=== PATIENT | male | born 1980 | race Two or more races ===

== ENCOUNTER 2025-01-16 18:42 | Emergency (ER) | payer OTHER ==
[~2025-01-16] VITALS: Ht 175.3 cm; Wt 127.0 kg
[2025-01-16 19:42] LABS: PLATELET COUNT (AUTO) 227 K/uL (150-450); RED BLOOD CELL COUNT(AUTO) 5.44 MIL/uL (4.5-6.0); RED CELL DISTRIBUTION WIDTH 14.2 % (11.5-15.0); WHITE BLOOD COUNT (AUTO) 9.4 K/uL (4.3-11.0)
[2025-01-16 19:53] LABS: SODIUM SERUM 136 mmol/L (136-145)
[2025-01-16 19:54] LABS: CALCIUM, SERUM 8.3 mg/dL (8.5-10.1); CREATININE 0.8 mg/dL (0.6-1.3); UREA NITROGEN, BLOOD 11 mg/dL (7-18)
[2025-01-16 19:55] LABS: ASPARTATE AMINOTRANSFERASE 16 U/L (15-37)
[2025-01-16 19:56] LABS: TOTAL PROTEIN, SERUM 6.3 g/dL (6.4-8.2)
[2025-01-16 20:21] LABS: APPEARANCE,URINE CLEAR (CLEAR); BLOOD, URINE Small Ery/uL (NEGATIVE); LEUKOCYTE ESTERASE ,URINE Negative (NEGATIVE); NITRITE, URINE NEGATIVE (NEGATIVE); UGLUCOSE >=1000 mg/dL (NEGATIVE)
[2025-01-16 20:24] LABS: ADD URINE CULTURE YES; SQUAMOUS EPITHELIAL CELL,UR Rare /HPF (None Seen)
[2025-01-16 20:25] LABS: URINE AMORPHOUS URATE Rare /HPF (None Seen)
[2025-01-16 20:28] LABS: AMPHETAMINE, URINE NEGATIVE (NEGATIVE); BARBITURATE, URINE NEGATIVE (NEGATIVE); BENZODIAZEPINE, URINE NEGATIVE (NEGATIVE); CANNABINOID, URINE NEGATIVE (NEGATIVE); COCCAINE, URINE NEGATIVE (NEGATIVE); OPIATE, URINE NEGATIVE (NEGATIVE)
[2025-01-16] MEDS ORDERED: INSULIN REGULAR, HUMAN 100 UNIT/ML 10 ML VIAL ONE (20:57)
[2025-01-16] MEDS: IV NS 0.9% 1,000 ML BAG IV ONE (21:03)
[2025-01-16] MEDS: INSULIN REGULAR, HUMAN 100 UNIT/ML 10 ML VIAL SQ ONE (21:04)
[2025-01-16] MEDS ORDERED: POTASSIUM CHLORIDE 20 MEQ TAB.PRT.SR PO ONE (22:33)
[2025-01-16] MEDS: POTASSIUM CHLORIDE 20 MEQ TAB.PRT.SR PO ONE (22:35)
[2025-01-17 00:56] LABS: CALCIUM, SERUM 8.2 mg/dL (8.5-10.1); CREATININE 0.7 mg/dL (0.6-1.3); SODIUM SERUM 143.0 mmol/L (136-145); UREA NITROGEN, BLOOD 8.0 mg/dL (7-18)
[2025-01-17 08:00] VITALS: TEMP 98.6
[2025-01-17] MEDS ORDERED: ACETAMINOPHEN ES 500 MG TABLET ONE (08:19)
[2025-01-17] MEDS: ACETAMINOPHEN ES 500 MG TABLET PO ONE (08:20)
[2025-01-17] MEDS ORDERED: AMLODIPINE BESYLATE 5 MG TABLET ONE (11:56)
[2025-01-17] MEDS ORDERED: LOSARTAN POTASSIUM 25 MG TABLET ONE (11:56)
[2025-01-17] MEDS: AMLODIPINE BESYLATE 5 MG TABLET PO ONE (11:58)
[2025-01-17] MEDS: LOSARTAN POTASSIUM 25 MG TABLET PO ONE (11:59)
[2025-01-17 12:57] VITALS: BP 182/85; O2SAT 99
== END 2025-01-17 13:55 ==
LOC: ER 18:51
DX: R45.851 Suicidal ideations (principal); E11.65 Type 2 diabetes mellitus with hyperglycemia; E78.00 Pure hypercholesterolemia, unspecified; E87.6 Hypokalemia; F10.20 Alcohol dependence, uncomplicated; I10 Essential (primary) hypertension; I25.2 Old myocardial infarction; K43.9 Ventral hernia without obstruction or gangrene; Z88.0 Allergy status to penicillin; Z20.822 Contact with and (suspected) exposure to COVID-19; Z60.2 Problems related to living alone; Z59.00 Homelessness unspecified
CPT/HCPCS: 99285; 96374; 96360; 93005; 71045; 85025; 80048 ×2; 80076; 83735; 81001; 36415 ×2; 84484 ×2; 82962 ×2; 80143; 80320 ×2; 80307; 87426; 98960; J1815; J7030; 87086-TC; G0480